=== PATIENT | male | born 1975 | race Caucasian/White ===

== ENCOUNTER 2017-11-05 17:59 | Emergency (ER) | payer OTHER ==
[2017-11-05 18:08] VITALS: BP 130/85; PULSE 88; TEMP 98.5; BMI 30.7
[2017-11-05] MEDS ORDERED: DIPHTH,PERTUSS(ACELL),TET 0.5 ML DISP.SYRIN IM ONE (18:08)
--- NOTE | 2017-11-05 18:08 | PDOC ---
Rapid Medical Evaluation Time Seen by Provider: 11/05/17 18:06 Medical Evaluation: Allergies Allergy/AdvReac Type Severity Reaction Status Date / Time No Known Allergies Allergy Verified 11/05/17 18:05 11/05/17 18:06 I have performed a brief in-person evaluation of the patient The patient presents with a chief complaint of: injury to right thumb today by a piece of metal. States the metal stabbed his finger. denies numbness or tingling Pertinent physical exam findings are: NAD even and unlabored breathing right thumb with superficial lac, able to flex and extend thumb I have ordered the following: tetanus ordered The patient will proceed to the ED for further evaluation.
--- NOTE | 2017-11-05 18:48 | PDOC ---
History of Present Illness - General Chief Complaint: Laceration Stated Complaint: LACERATION Time Seen by Provider: 11/05/17 18:06 History Source: Patient Exam Limitations: No Limitations - History of Present Illness Initial Comments: 11/05/17 18:46 States was reaching into a closet to obtain something on a shelf and a sharp piece of metal impaled just distal to MCP 11/05/17 18:47 Timing/Duration: 1-3 hours Severity: mild Associated Symptoms: reports: denies symptoms Past History - Travel Traveled outside of the country in the last 30 days: No Close contact w/someone who was outside of country & ill: No - Past Medical History Allergies/Adverse Reactions: Allergies Allergy/AdvReac Type Severity Reaction Status Date / Time No Known Allergies Allergy Verified 11/05/17 18:05 Home Medications: Ambulatory Orders NK [No Known Home Medication] 11/05/17 Tramadol HCl [Ultram] 50 mg PO QID PRN 11/05/17 COPD: No - Surgical History Orthopedic Surgery: (BACK) - Immunization History Td Vaccination: Yes TDAP Vaccination: Yes Immunization Up to Date: Yes - Suicide/Smoking/Psychosocial Hx Smoking History: Current every day smoker Have you smoked in the past 12 months: Yes Number of Cigarettes Smoked Daily: 15 Information on smoking cessation initiated: No 'Breaking Loose' booklet given: 01/22/14 Hx Alcohol Use: No Drug/Substance Use Hx: No Substance Use Type: None Review of Systems - Review of Systems Able to Perform ROS?: Yes Is the patient limited Greek proficient: Yes Constitutional: Yes: Symptoms Reported, See HPI, Malaise HEENTM: No: Symptoms Reported Respiratory: No: Symptoms reported Musculoskeletal: Yes: Symptoms Reported, See HPI, Joint Pain All Other Systems: Reviewed and Negative *Physical Exam - Vital Signs Last Vital Signs Temp Pulse Resp BP Pulse Ox 98.5 F 88 18 130/85 96 11/05/17 18:06 11/05/17 18:06 11/05/17 18:06 11/05/17 18:06 11/05/17 18:06 - Physical Exam General Appearance: Yes: Nourished, Appropriately Dressed, Apparent Distress, Mild Distress HEENT: positive: ARI, Normal ENT Inspection, TMs Normal, Pharynx Normal Musculoskeletal: positive: Normal Inspection, Other (full range of motion to thumb, able to flex and extend against resistance, and sensation intact distal to injury.) Extremity: positive: Normal Capillary Refill, Normal Range of Motion, Other (1 cm laceration to the dorsum aspect of first phalanx left thumb. No active bleeding, no structures noted.). negative: Normal Inspection Integumentary: positive: Normal Color, Other (lac to left thumb) Neurologic: positive: business system consultant II-XII NML intact, Fully Oriented, Alert, Normal Mood/ Affect, Normal Response, Motor Strength /5 Medical Decision Making - Medical Decision Making 11/05/17 19:04 Stab wound not greater than 1 cm and without active bleeding. No structure changes or injury therefore opted to allow secondary intention healing due to stab wound. Cleaned and dressed with bacitracin ointment and splint provided to allow immobility for a few days. Tetanus/diphtheria/pertussis booster updated today *DC/Admit/Observation/Transfer Diagnosis at time of Disposition: Finger laceration Qualifiers: Encounter type: initial encounter Finger: thumb Damage to nail status: without damage Foreign body presence: without foreign body Laterality: left Qualified Code(s): S61.012A - Laceration without foreign body of left thumb without damage to nail, initial encounter - Discharge Dispostion Disposition: HOME Condition at time of disposition: Stable Decision to Admit order: No - Referrals Referrals: Chadwick Albarran PA [Primary Care Provider] - - Patient Instructions Printed Discharge Instructions: DI for Laceration Repair Additional Instructions: Rest, elevate, avoid strenuous activity or heavy lifting until healed Leave dressing on for the next 24 hours, Then may remove dressing gently and wash area with soap and water. 2 times a day Reapply bacitracin ointment and dressing daily for the next 5 days Use splints until wound is healed May use Tylenol or Motrin for pain relief Your tetanus/diphtheria/pertussis booster was updated today - Post Discharge Activity
[2017-11-05] MEDS ORDERED: BACITRACIN 15 GM TUBE TOPICAL OINTMENT ONE (18:58)
== END 2017-11-05 19:16 | disposition home or self-care (01) ==
LOC: JERFT 17:59
PROC: 2W3HX1Z Immobilization of Left Thumb using Splint (ICD-10-PCS; principal; 2017-11-05)
PROC: 3E0234Z Introduction of Serum, Toxoid and Vaccine into Muscle, Percutaneous Approach (ICD-10-PCS; 2017-11-05)
DX: S61.012A Laceration without foreign body of left thumb without damage to nail, initial encounter (principal); W45.8XXA Other foreign body or object entering through skin, initial encounter; Y93.89 Activity, other specified; Y92.89 Other specified places as the place of occurrence of the external cause; F17.210 Nicotine dependence, cigarettes, uncomplicated
CPT/HCPCS: 29130; 73140-TC-RT-FY; 90471; 90715; 99281-25

== ENCOUNTER 2017-12-06 11:17 | Day surgery (SDC) | payer OTHER ==
[2017-12-03 18:25] VITALS: BMI 29.2
--- NOTE | 2017-12-06 13:20 | HP ---
Admitting History and Physical - Admission Chief Complaint: Right thumb extensor tendon avulsion zone 3 History of Present Illness: 42yo RHD male with PMH hypertension presents for reevaluation of his right thumb injury. About a week or so ago he had a puncture wound to the right thumb with a sharp piece of metal his tetanus was updated and his wound was allowed to close by secondary intention he now presents for further evaluation of increasing pain and inability to move the right thumb. He has not systemic symptoms. He presented today for elective repair of right thumb extensor tendon laceration. History Source: Patient, Medical Record Limitations to Obtaining History: No Limitations - Past Medical History Cardiovascular: Yes: HTN - Smoking History Smoking history: Current every day smoker Have you smoked in the past 12 months: Yes Aproximately how many cigarettes per day: 12 - Alcohol/Substance Use Hx Alcohol Use: Yes (social) Home Medications - Allergies Allergies/Adverse Reactions: Allergies Allergy/AdvReac Type Severity Reaction Status Date / Time No Known Allergies Allergy Verified 12/06/17 11:42 - Home Medications Home Medications: Ambulatory Orders Hydrochlorothiazide 25 mg PO DAILY 12/03/17 Ibuprofen 800 mg PO TID PRN 12/03/17 Tramadol HCl [Ultram] 50 mg PO QID PRN MDD 100 12/03/17 Review of Systems - Review of Systems Constitutional: denies: Chills, Fever Eyes: denies: Blind Spots, Recent Change in Vision HENT: denies: Difficult Swallowing, Throat Pain Neck: denies: Decreased ROM, Tenderness Cardiovascular: denies: Chest Pain, Palpitations Respiratory: denies: Cough, SOB Gastrointestinal: denies: Abdominal Pain, Constipation, Diarrhea Genitourinary: denies: Burning, Discharge, Dysuria Breasts: reports: No Symptoms Reported, Pain Musculoskeletal: reports: Muscle Weakness (Right thumbn) Integumentary: denies: Eczema, Pruritis, Rash Neurological: denies: Seizure, Syncope Endocrine: denies: Unexplained Weight Gain, Unexplained Weight Loss Hematology/Lymphatic: denies: Easily Bruised, Excessive Bleeding Psychiatric: denies: Anxiety, Depression Physical Examination Vital Signs: Vital Signs Temperature 97.8 F 12/06/17 11:45 Pulse Rate 88 12/06/17 11:45 Respiratory Rate 16 12/06/17 11:45 Blood Pressure 140/95 12/06/17 11:45 O2 Sat by Pulse Oximetry (%) 97 12/06/17 11:45 Constitutional: Yes: Well Nourished, No Distress, Calm Eyes: Yes: Conjunctiva Clear, EOM Intact HENT: Yes: Atraumatic, Normocephalic Neck: Yes: Supple, Trachea Midline Cardiovascular: Yes: Regular Rate and Rhythm, S1, S2 Respiratory: Yes: Regular, CTA Bilaterally Gastrointestinal: Yes: Normal Bowel Sounds, Soft ...Rectal Exam: Yes: Deferred Renal/: No: CVA Tenderness - Left, CVA Tenderness - Right Extremities: Yes: Other (no active extension of right thumb across the IP joint) . No: Amputation, Cold, Cool, Erythema Edema: No Peripheral Pulses WNL: Yes Peripheral Pulses: Left Radial: 2+, Right Radial: 2+, Left Doralis Pedis: 2+, Right Dorsalis Pedis: 2+ Integumentary: No: Jaundice, Pressure Ulcer, Rash Neurological: Yes: Alert, Oriented Psychiatric: Yes: Alert, Oriented Imaging - Results X-ray: Report Reviewed, Image Reviewed Problem List - Problems (1) Laceration of extensor muscle, fascia and tendon of right thumb at wrist and hand level, initial encounter Assessment/Plan: 42 yo RHD male with right thumb extensor tendon laceration NPO and IVF hydatrion IV antibitotics OR for righh thumb repiair of extensor pollicis longus zone 2 Discussed with patient risks, benefits and alternatives of aforemention procedure, including but not limited to bleeding, infection, injury to adjacent structures, scar formation, loss of function need for further procedures, ; alternatives include antibiotics, delayed or no surgery - risks of this include failure of nonoperative therapy. Patient desires to proceed with operation - will take to OR for above. Informed consent signed for same. Code(s): S66.221A - LACERAT EXTENSOR MUSC/FASC/TEND R THM AT WRS/HND LV, INIT (2) Depression Code(s): F32.9 - MAJOR DEPRESSIVE DISORDER, SINGLE EPISODE, UNSPECIFIED (3) Finger laceration Code(s): S61.219A - LACERATION W/O FB OF UNSP FINGER W/O DAMAGE TO NAIL, INIT Qualifiers: Encounter type: initial encounter Finger: thumb Damage to nail status: without damage Foreign body presence: without foreign body Laterality: left Qualified Code(s): S61.012A - Laceration without foreign body of left thumb without damage to nail, initial encounter (4) Vertigo Code(s): R42 - DIZZINESS AND GIDDINESS
--- NOTE | 2017-12-06 13:23 | OP ---
Operative Note - Note: Operative Date: 12/06/17 Pre-Operative Diagnosis: extensor tendon avulsion zone three right thumb Operation: Right thumb primary repair of extensor pollicis longus tendon Findings: 100% lacertion of EPL zone 2. debrided and primaply repaired with modified guzman core repair and an epitendonous repais, TP 250mmHg, [id number] Post-Operative Diagnosis: Same as Pre-op Surgeon: Eduardo Blackburn Anesthesiologist/[employer] FOUNDER: Dominick Peter Anesthesia: General, Local (1% lidocaine digital block) Estimated Blood Loss (mls): 2 Fluid Volume Replaced (mls): 800 Operative Report Dictated: Yes
--- NOTE | 2017-12-06 13:23 | DS ---
Physical Examination Vital Signs: Vital Signs Temperature 97.8 F 12/06/17 11:45 Pulse Rate 88 12/06/17 11:45 Respiratory Rate 16 12/06/17 11:45 Blood Pressure 140/95 12/06/17 11:45 O2 Sat by Pulse Oximetry (%) 97 12/06/17 11:45 Findings/Remarks: stable postoperatively, tolerating diet. Constitutional: Yes: Well Nourished, No Distress, Calm Eyes: Yes: Conjunctiva Clear, EOM Intact HENT: Yes: Atraumatic, Normocephalic Neck: Yes: Supple Cardiovascular: Yes: Regular Rate and Rhythm, S1, S2 Respiratory: Yes: Regular, CTA Bilaterally Gastrointestinal: Yes: Normal Bowel Sounds, Soft. No: Tenderness ...Rectal Exam: Yes: Deferred Renal/: No: CVA Tenderness - Left, CVA Tenderness - Right Musculoskeletal: No: Muscle Pain, Muscle Weakness Extremities: No: Cool, Cyanosis Edema: No Peripheral Pulses WNL: Yes Peripheral Pulses: Left Radial: 2+, Right Radial: 2+, Left Doralis Pedis: 2+, Right Dorsalis Pedis: 2+, Left Femoral: 2+, Right Femoral: 2+ Integumentary: No: Jaundice, Rash Wound/Incision: Yes: Clean/Dry, Well Approximated, Dressing Dry and Intact ( Righ thumb spica splint) Neurological: Yes: Alert, Oriented Psychiatric: Yes: Alert, Oriented Discharge Summary Reason For Visit: UNSP INJ EXTN MUSC/FASC/TEND R THM AT [facility]/HND LV Right thumb extensor tendon laceration Procedures: Principal: Primary repair of right Extensor pollicis longus zone 2 Hospital Course: Admitted for ambulatory surgery. Uneventful procedure. stable for discharge home Condition: Improved - Instructions Diet, Activity, Other Instructions: Postoperative instructions: You had a repair of right thumb extensor tendon laceration on 12/06/[address] Eduardo Blackburn of [facility]. Activity: Resume your usual activities gradually, but no heavy exertion or lifting more than 10-15 pounds for 4-6 weeks. Please keep right thumb spica splint intact clean and dry. ELEVATE THE RIGHT ARM ABOVE HEART LEVEL FOR 48hours. Eat lightly at first, but advance to your usual diet as tolerated. Pain: For pain, you may use and alternate Tylenol (acetaminophen) 1-2 pills and/ or ibuprofen 200 mg (1-3 pills) every 6 hours each as needed; this means that you can take one OR the other at 3-hour intervals. If you are prescribed a Tylenol/narcotic combination for severe pain, use it instead of plain Tylenol as needed and switch back when your pain starts decreasing. Do not take more than 4000 mg of acetaminophen in a day. Take medications as prescribed or indicated on the labeling. Follow-up: Call Dr. Blackburn' office at [phone] to make your postop appointment (Wednesday in approximately 2 weeks after surgery as advised). Clinic is held in the [facility] on the first floor of [facility]. Call the office if you have: * increasing pain not responsive to pain medication * fever of 101F or higher * unusual or increasing bleeding or drainage from wounds * increasing redness or swelling at wound sites Also, see your primary medical doctor within 1-2 weeks. Disposition: HOME - Home Medications Comprehensive Discharge Medication List: Ambulatory Orders Hydrochlorothiazide 25 mg PO DAILY 12/03/17 Ibuprofen 800 mg PO TID PRN 12/03/17 Tramadol HCl [Ultram] 50 mg PO QID PRN MDD 100 12/03/17
[2017-12-06] MEDS ORDERED: ceFAZolin SODIUM 1 GM VIAL IVPB ONE (14:25)
[2017-12-06] MEDS ORDERED: LIDOCAINE HCL 1%, 10 MG/ML (50 mL VIAL) IJ ONE (14:41)
[2017-12-06] MEDS ORDERED: ONDANSETRON 4 MG/2 ML VIAL IVPUSH PRN (14:48)
[2017-12-06] MEDS ORDERED: IBUPROFEN 800 MG/8 ML IJ IVPB PRN (14:48)
[2017-12-06] MEDS ORDERED: oxyCODONE HCL 10 MG SUSTAINED ACTING TABLET PO ONE (14:50)
[2017-12-06] MEDS ORDERED: LACTATED RINGERS SOLUTION 1,000 ML IV SCH (15:00)
[2017-12-06 17:55] VITALS: BP 128/84; PULSE 84; TEMP 98
--- NOTE | 2017-12-07 19:21 | OP ---
DATE OF OPERATION: 12/06/2017 ATTENDING SURGEON: Eduardo Blackburn MD PREOPERATIVE DIAGNOSIS: Extensor tendon avulsion, laceration zone 3 right thumb. POSTOPERATIVE DIAGNOSIS: Extensor tendon avulsion, laceration zone 3 right thumb. PROCEDURE: Right thumb primary repair extensor pollicis longus tendon, extensor pollicis brevis tendon avulsion lacerations. ANESTHESIA: General with local. Local consisted of 0.5% Marcaine, 1% lidocaine a total of 10 mL given in an area block fashion. SPRAY TECHNICIAN: Dominick Peter ESTIMATED BLOOD LOSS: 2 mL. IV FLUID ADMINISTERED: 800 mL crystalloid. TOURNIQUET PRESSURE: 250 mmHg. TOURNIQUET TIME: 38 minutes. IMPLANTS: None. INDICATION: The patient had a 100% laceration of the extensor pollicis longus zone 2 and extensor pollicis brevis zone 3. They were primarily repaired with modified Rendon core repairs with epitendinous repair. Counts were correct. The patient sustained a laceration to the right thumb dorsum while at work. 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 He was counseled regarding risks, benefits, and alternatives and surgical fixation. He signed informed consent and was taken for the procedure. DESCRIPTION OF PROCEDURE: The patient was brought to the operating room and was placed in supine position on the operating room table with the right arm extended at 90 degrees perpendicular by his midline axis. The right thumb was prepped and draped into a standard surgical field. The patient had lower extremity SCDs placed. He was induced with general anesthesia and endotracheally intubated. We proceeded then with a dorsal linear incision, which would cover the extensor pollicis longus of the has been as well as zone 3 proximal to the metatarsophalangeal joint at the base. We then proceeded with opening the incision with a 15-blade scalpel. It was deepened and widened through subcutaneous tissue. Care was taken to obtain hemostasis throughout the dissection using Bovie cautery. The skin was cleared. Extensor tendons were identified. There did appear to be a laceration of the extensor tendon, which had a small amount of formation of new callus. This was debrided with rongeur sharply until the cut ends of the extensor pollicis longus tendon could be identified in zone 2. The tendon was then restored and approximated using a modified Rendon stitch with a core repair 2-0 Ethibond stitch and 6-0 Prolene for an epitendinous repair. We proceeded for additional inspiration of the extensor pollicis brevis tendon in the proximal joint. Also an avulsion laceration was identified. It was 100%. It was primarily repaired as well in a similar fashion using a modified Rendon core repair and an epitendinous repair with 6-0 Prolene. After completing both laceration repairs, the site was irrigated, and the skin was repaired with a whipstitch of 4-0 nylon to approximate the skin edges. The patient was splinted in neutral extension of the tendon in a thumb spica splint. He was given instructions to follow up in a period of 1 week and provided with oral antibiotics and pain medication. MD DENILSON Salinas/[id number]
== END 2017-12-06 17:55 | disposition home or self-care (01) ==
LOC: JASU-SURG 11:17 → MERGE 14:00 → JASU-SURG 17:55
PROC: 0LQ70ZZ Repair Right Hand Tendon, Open Approach (ICD-10-PCS; 2017-12-06)
PROC: 0LQ70ZZ Repair Right Hand Tendon, Open Approach (ICD-10-PCS; principal; 2017-12-06 14:00)
DX: S66.221A Laceration of extensor muscle, fascia and tendon of right thumb at wrist and hand level, initial encounter (principal); X58.XXXA Exposure to other specified factors, initial encounter; Y93.89 Activity, other specified; Y92.89 Other specified places as the place of occurrence of the external cause
CPT/HCPCS: 94760